=== PATIENT | female | born 1955 | race Caucasian/White ===

== ENCOUNTER 2016-07-23 22:12 | Emergency (ER) | payer OTHER | END 2016-07-23 23:30 | disposition left against medical advice (07) | LOC: ER1 22:12 | DX: Z53.21 Procedure and treatment not carried out due to patient leaving prior to being seen by health care provider (principal) | CPT/HCPCS: 93005 ==

== ENCOUNTER → 2020-05-20 | Outpatient (CLI) | payer OTHER ==
[~2020-05-20] MED LIST: BACTROBAN OINT22 GM EXT; CYCLOBENZAPRINE5 MG PO; IBUPROFEN800 MG PO; KEFLEX CAP 500500 MG PO
== END ==
LOC: CT 05-09 11:00
DX: R91.1 Solitary pulmonary nodule (principal); I10 Essential (primary) hypertension; E11.9 Type 2 diabetes mellitus without complications
CPT/HCPCS: 36415; 71260; 82565; 84520; Q9963

== ENCOUNTER 2020-08-04 14:00 | Emergency (ER) | payer OTHER ==
[~2020-08-04 14:00] MED LIST changes: -CYCLOBENZAPRINE5 MG PO; -IBUPROFEN800 MG PO
[2020-08-04 14:31] LABS: HEMOGLOBIN 13.3 gm/dl (12.3-15.3); RED BLOOD COUNT 4.81 M/UL (4.00-5.10); WHITE BLOOD COUNT 7.4 K/UL (4.5-11.0)
[2020-08-04 15:12] LABS: BUN/CREATININE RATIO 14 (0-10)
[2020-08-04] MEDS ORDERED: IBUPROFEN800 MG PO (17:37)
[2020-08-04] MEDS ORDERED: CYCLOBENZAPRINE5 MG PO (17:37)
== END 2020-08-04 17:48 | disposition home or self-care (01) ==
LOC: ER1 14:00
PROVIDERS: Emergency Medicine
DX: S43.401A Unspecified sprain of right shoulder joint, initial encounter (principal); S20.219A Contusion of unspecified front wall of thorax, initial encounter; S30.1XXA Contusion of abdominal wall, initial encounter; I10 Essential (primary) hypertension; E11.9 Type 2 diabetes mellitus without complications; V49.40XA Driver injured in collision with unspecified motor vehicles in traffic accident, initial encounter
CPT/HCPCS: 70450; 71260; 72125; 72128; 72131; 73030; 73560; 80053; 82550; 82553; 83690; 84484; 85025; 96374; 96375; 99284; J2270; J2405; Q9965

== ENCOUNTER → 2020-11-17 | Outpatient (CLI) | payer OTHER ==
[~2020-11-17] MED LIST changes: +CYCLOBENZAPRINE5 MG PO; +IBUPROFEN800 MG PO
== END ==
LOC: KOH-I 13:53
DX: R91.1 Solitary pulmonary nodule (principal)
CPT/HCPCS: 71250

== ENCOUNTER → 2021-05-18 | Outpatient (CLI) | payer MEDICARE, OTHER ==
[~2021-05-18] MED LIST changes: +AMARYL2 MG PO; +CYCLOBENZAPRINE10 MG PO; +FAMOTIDINE40 MG PO; +GABAPENTIN800 MG PO; +HUMALOG SQ; +HYDROCODON-ACE1 EAC2 PO; +OXYBUTYNIN CHLOR5 MG PO; +PROTONIX40 MG PO; +TRAZODONE HCL100 MG PO; +TRULICITY3 MG/0.5 M SQ; +VALSARTAN320 MG PO
[2021-05-18 10:20] LABS: HEMOGLOBIN 12.4 gm/dl (12.3-15.3); RED BLOOD COUNT 4.54 M/UL (4.00-5.10); WHITE BLOOD COUNT 6.6 K/UL (4.5-11.0)
== END ==
LOC: OPSV2 09:00
PROVIDERS: Orthopaedic Surgery
DX: Z01.818 Encounter for other preprocedural examination (principal); G56.01 Carpal tunnel syndrome, right upper limb; Z20.822 Contact with and (suspected) exposure to COVID-19; E11.9 Type 2 diabetes mellitus without complications; R94.31 Abnormal electrocardiogram [ECG] [EKG]; I25.2 Old myocardial infarction; R00.1 Bradycardia, unspecified
CPT/HCPCS: 36415; 80048; 85025; 93005; U0003

== ENCOUNTER → 2021-05-22 | Day surgery (SDC) | payer MEDICARE, OTHER ==
[~2021-05-22] VITALS: Ht 157.5 cm; Wt 119.7 kg
== END | disposition home or self-care (01) ==
LOC: OR 08:03
DX: G56.01 Carpal tunnel syndrome, right upper limb (principal); I10 Essential (primary) hypertension; E11.9 Type 2 diabetes mellitus without complications; E66.01 Morbid (severe) obesity due to excess calories; K21.9 Gastro-esophageal reflux disease without esophagitis; Z56.0 Unemployment, unspecified; Z79.84 Long term (current) use of oral hypoglycemic drugs; Z20.822 Contact with and (suspected) exposure to COVID-19; Z79.4 Long term (current) use of insulin
CPT/HCPCS: 82962; J0690; J1100; J1885; J2001; J2250; J2370; J2405; J2704; J3010; J7030; J7120